=== PATIENT | female | born 1970 | race Caucasian/White ===

== ENCOUNTER → 2019-06-14 | Outpatient (CLI) | payer BC, OTHER ==
[~2019-06-14] MED LIST: ASPI325T; COLA100C2; CONRAY-43 43% 50ML VIAL (Q9960) As Ordered ONE; LIDOCAINE 1% MDV 20ML VIAL As Ordered ONE; PERC5TAB8; PROZ20CA; SYNTHROID; TRIAMCINOLONE ACETONIDE SUSP 40 MG/ML VIAL (J3301) As Ordered ONE
--- NOTE | 2019-06-14 12:35 | REP ---
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 Rousseau. The benefits and risks including but not limited to pain, infection, bleeding and anaphylaxis were explained to the patient and informed consent was obtained both verbally and written. Directly prior to the start of the procedure, a formal timeout was completed in the procedure room. The right 2nd and 3rd TMT joint spaces were localized using fluoroscopic guidance. The skin was prepped and draped in the usual sterile fashion. 1 mL of 1% lidocaine 10 mg/ml was used as a local anesthetic. Using fluoroscopic guidance a 25-gauge needle was inserted and advanced to the right 2nd TMT joint space. 1 mL of Conray 43 was injected to verify needle placement, it was felt that the second at joint space connected with the third joint space as well. A 3 mL solution containing a 2 mL 1% lidocaine 10 mg/ml and 1 ml Kenalog of 40 mg/ml was injected into the joint. The needle was removed and hemostasis was achieved. The left 2nd and 3rd TMT joint spaces were localized using fluoroscopic guidance. The skin was prepped and draped in the usual sterile fashion. 1 mL of 1% lidocaine 10 mg/ml was used as a local anesthetic. Using fluoroscopic guidance a 25-gauge needle was inserted and advanced to the left 2nd TMT joint space. 1 mL of Conray 43 was injected to verify needle placement, it was felt that the second at joint space connected with the third joint space as well. A 3 mL solution containing a 2 mL 1% lidocaine 10 mg/ml and 1 ml Kenalog of 40 mg/ml was injected into the joint. The needle was removed and hemostasis was achieved. The patient tolerated the procedure well and there were no immediate complications. 0.8 minutes of fluoroscopy time was utilized for this procedure. Some fluoroscopic images are performed with last image hold technology. These images require no additional radiation. Reviewed by NILTON Thornton 06/14/2019 10:52 A Electronically Signed by Sergo Rousseau MD 06/14/2019 12:26 P
== END ==
LOC: M RADPRO 09:29
PROVIDERS: ATTEND Orthopaedic Surgery
DX: M19.071 Primary osteoarthritis, right ankle and foot (principal); M19.072 Primary osteoarthritis, left ankle and foot
CPT/HCPCS: 20605; 77002; J3301; Q9960

== ENCOUNTER → 2019-12-10 | Outpatient (CLI) | payer BC ==
[~2019-12-10] MED LIST changes: -CONRAY-43 43% 50ML VIAL (Q9960) As Ordered ONE; +ISOVUE-300 61% 50ML VIAL As Ordered ONE
--- NOTE | 2019-12-10 19:35 | REP ---
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 Rousseau. The benefits and risks including but not limited to pain, infection, bleeding and anaphylaxis were explained to the patient and informed consent was obtained both verbally and written. Directly prior to the start of the procedure, a formal timeout was completed in the procedure room. The 2nd TMT joint space was localized using fluoroscopic guidance. The skin was prepped and draped in the usual sterile fashion. 0.5 mL of 1% lidocaine 10 mg/ml was used as a local anesthetic. Using fluoroscopic guidance a 25-gauge needle was inserted and advanced to the 2nd TMT joint space. 0.5 mL of Conray 43 was injected to verify needle placement, this contrast was seen extending into the 3rd TMT joint space. A 3 mL solution containing a 2 mL 1% lidocaine 10 mg/ml and 1 ml of Kenalog 40 mg/ml was injected into the joint. The needle was removed and hemostasis was achieved. The patient tolerated the procedure well and there were no immediate complications. 0.1 minutes of fluoroscopy time was utilized for this procedure. Some fluoroscopic images are performed with last image hold technology. These images require no additional radiation. Reviewed by NILTON Thornton 12/10/2019 03:02 P Electronically Signed by Sergo Rousseau MD 12/10/2019 07:27 P
--- NOTE | 2019-12-10 19:35 | REP ---
Reason For Exam/Comment: Primary osteoarthritis of the left foot and ankle Procedure: 2nd and 3rd TMT intra-articular injection The procedure was performed by NILTON Little, under the direct supervision of Dr. Rousseau. The benefits and risks including but not limited to pain, infection, bleeding and anaphylaxis were explained to the patient and informed consent was obtained both verbally and written. Directly prior to the start of the procedure, a formal timeout was completed in the procedure room. The 2nd TMT joint space was localized using fluoroscopic guidance. The skin was prepped and draped in the usual sterile fashion. 5 mL of 1% lidocaine 10 mg/ml was used as a local anesthetic. Using fluoroscopic guidance a 25-gauge needle was inserted and advanced to the 2nd TMT joint space. 0.5 mL of Conray 43 was injected to verify needle placement, this contrast is seen extending into the 3rd TMT joint space as well . A 3 mL solution containing a 2 mL 1% lidocaine 10 mg/ml and 1 ml of Kenalog 40 mg/ml was injected into the joint. The needle was removed and hemostasis was achieved. The patient tolerated the procedure well and there were no immediate complications. 0.5 minutes of fluoroscopy time was utilized for this procedure. Some fluoroscopic images are performed with last image hold technology. These images require no additional radiation. Reviewed by NILTON Thornton 12/10/2019 03:11 P Electronically Signed by Sergo Rousseau MD 12/10/2019 07:27 P
== END ==
LOC: M RADPRO 10:41
PROVIDERS: ATTEND Orthopaedic Surgery
DX: M19.071 Primary osteoarthritis, right ankle and foot (principal); M19.072 Primary osteoarthritis, left ankle and foot
CPT/HCPCS: 20605; 77002; J3301; Q9967

== ENCOUNTER → 2020-05-13 | Outpatient (CLI) | payer OTHER ==
--- NOTE | 2020-05-13 12:44 | REP ---
INDICATION: PRIMARY OSTEOARTHRITIS R/L ANKLE AND FOOT. COMPARISON: 12/10/2019, 06/14/2019 TECHNIQUE: Intraoperative fluoroscopic imaging FINDINGS: Examination demonstrates catheter placement and injections at the right and left 1st and 2nd tarsometatarsal joints. Total fluoroscopic time 0.6 minutes. IMPRESSION: Status post bilateral tarsometatarsal joint injections. <Electronically signed by Rogers Escudero > 05/13/20 [id number]
== END ==
LOC: M RADPRO 10:30
PROVIDERS: ATTEND Physician Assistant
DX: M19.071 Primary osteoarthritis, right ankle and foot (principal); M19.072 Primary osteoarthritis, left ankle and foot
CPT/HCPCS: 20606; 77002; J3301; Q9967

== ENCOUNTER → 2021-02-26 | Outpatient (CLI) | payer OTHER ==
--- NOTE | 2021-02-26 16:58 | REP ---
INDICATION: ARPITA FOOT OA W/ PAIN. COMPARISON: None. TECHNIQUE: The procedure was performed under the direct supervision of Dr. Rousseau. The benefits and risks including but not limited to pain infection bleeding and anaphylaxis were explained to the patient and informed consent was obtained. The left 1st, 2nd and 3rd tarsometatarsal joints were localized using fluoroscopic guidance. The skin was prepped and draped in a sterile fashion. The 2nd and 3rd tarsometatarsal joints were addressed 1st. 1% lidocaine was used as a local anesthetic. Using fluoroscopic guidance, and last image hold technology, a 25 gauge needle was inserted and advanced into the joint. 0.5 mL of Isovue-300 was injected to verify placement. 1 mL of a solution containing 1 mL of 1% lidocaine and 1 mL of Kenalog 40 mg was injected. The needle was then removed. The 1st tarsometatarsal joint was then addressed. 1% lidocaine was used as a local anesthetic. Using fluoroscopic guidance a 25 gauge needle was inserted and advanced into the joint. 0.5 mL of Isovue-300 was injected to verify placement. 1 mL of a solution containing 1 mL of 1% lidocaine and 1 mL of Kenalog 40 mg was injected. The needle was then removed. The patient tolerated the procedure well and there were no immediate complications. Less than 6 seconds of fluoroscopy time was utilized for this procedure. FINDINGS: None IMPRESSION: Fluoro guidance for bilateral 1st 2nd and 3rd tarsometatarsal joint injection. <Electronically signed by Jose E Pritchard > 02/26/21 [id number] <Electronically signed by Sergo Rousseau > 02/26/21 [id number]
== END ==
LOC: M RADPRO 10:44
PROVIDERS: ATTEND Physician Assistant Surgical
DX: M19.072 Primary osteoarthritis, left ankle and foot (principal)
CPT/HCPCS: 20600; 77002; J3301; Q9967